=== PATIENT | male | born 1960 | race Caucasian/White ===

== ENCOUNTER 2017-01-09 06:18 | Emergency (ER) | payer SELFPAY ==
[~2017-01-09 06:18] MED LIST: ADULT LOW DOSE81 M1 PO; ADVAIR; ADVAIR 25028 BLISTE1 INH; AMBIEN10 M1 PO; ASPIRIN325 M3 PO; CELEBREX; CELEBREX200 M1 PO; CELEXA40 M2 PO; CHANTIX1 M1 PO; CITALOPRAM; CLARITIN-D 241 EAC2 PO; CPAP; DAILY MULTIPLE1 EAC2 PO; ERYTHROMYCIN1 GM OP; FLOMAX0.4 M1 PO; FLONASE; FLONASE ALLERG9.9 ML INH; GLUCOSAMINE CH1 EA10 PO; HYDROCODON-ACE1 EA15 PO; HYDROCODONE; IPRAT-ALBUT 0.5-3 ML IH; LISINOPRIL; LISINOPRIL10 M1 PO; LISINOPRIL20 M1 PO; LYRICA; LYRICA150 MG/CAP PO; METOPROLOL; METOPROLOL PO; METOPROLOL TART25 M1 PO; PREDNISONE10 M1 PO; SIMVASTATIN40 M1 PO; TAMIFLU75 MG/CAP PO; TAMSULOSIN; TIZANIDINE; TIZANIDINE HCL4 M3 PO; VENTOLIN HFA18 G2 PO; VITAMIN C500 M6 PO
[2017-01-09] MEDS ORDERED: POLYMYXIN B-TMP10 M1 OP (07:11)
[2017-01-09] MEDS ORDERED: PATANOL5 M1 EACH EYE (07:11)
== END 2017-01-09 07:25 ==
LOC: EDMED 06:18
DX: H10.9 Unspecified conjunctivitis (principal)